=== PATIENT | female | born 1980 | race Caucasian/White ===

== ENCOUNTER 2016-11-20 08:51 | Emergency (ER) | payer OTHER ==
[2016-11-20 09:04] VITALS: BP 110/75; PULSE 72; RESP 16; TEMP 98.1; O2SAT 96
--- NOTE | 2016-11-20 09:22 | UCPHY ---
H & P Patient Type: Established Chief Complaint Nursing Narrative: left ankle swollen, fell while dancing 2 days ago. Time Seen by Provider: 11/20/16 09:10 HPI/ROS: Chief complaint: Left ankle pain HPI: 36-year-old woman presenting with worsening left ankle pain for the last couple days. Patient has been doing a lot of dancing preparing for show patient 's nose worsening left ankle pain in the middle portion of her ankle for the last several days. She is able to ambulate. Does not recall any specific injuries or falls. Does not have a history of injuries in the past. No rash. No numbness or tingling. ROS: 10 point Review of Systems is negative except as noted in the HPI. Past medical history: Depression and ADD Medications: SSRI and Adderall Allergies: No known drug allergies Social history: Nonsmoker, occasional alcohol, no recreational drug use Physical exam: General: Awake, alert, no acute distress Left leg: She has full range of motion hip without pain. Full range of motion of her knee without pain. She has no knee tenderness. No calf tenderness. She has tenderness just inferior to the medial malleolus along the Tenisha tibial ligaments. She has minimal distal malleolar tenderness. She has no midfoot tenderness. No lateral ankle tenderness. No calcaneal tenderness. She has full range of motion with some mild discomfort. She has 2+ DP and PT pulses. Cap refills less than 2 seconds. - Medical/Surgical History Hx Asthma: No Hx Chronic Respiratory Disease: No Hx Diabetes: No Hx Cardiac Disease: No Hx Renal Disease: No Hx Cirrhosis: No Hx Alcoholism: No Hx HIV/AIDS: No Hx Splenectomy or Spleen Trauma: No Other PMH: depression. denies surgery - Family History Significant Family History: No pertinent family hx - Social History Smoking Status: Never smoked Constitutional: Initial Vital Signs Temperature (C) 36.7 C 11/20/16 08:59 Heart Rate 72 11/20/16 08:59 Respiratory Rate 16 11/20/16 08:59 Blood Pressure 110/75 11/20/16 08:59 O2 Sat (%) 96 11/20/16 08:59 O2 Delivery Mode Room Air Allergies/Adverse Reactions: No Known Allergies Allergy (Unverified 03/05/14 11:15) Home Medications: Medication Instructions Recorded FLUoxetine [Prozac 20 MG (*)] 03/05/14 Adderall 10 mg Tablet 11/20/16 Bcp 11/20/16 Departure - Departure Disposition: Home, Routine, Self-Care Clinical Impression: Ankle sprain Condition: Good Instructions: Ankle Sprain (ED) Additional Instructions: Follow up with primary care physician in 4-5 days if symptoms are not improving. You may take ibuprofen alternating with acetaminophen for pain. Rest, ice, and elevate the extremity while your having pain. Referrals: AGUSTIN BUSTILLOS [Other] - As per Instructions - PQRS PQRS Measurement: NA
== END 2016-11-20 09:56 | disposition home or self-care (01) ==
LOC: CED 08:51
DX: S93.402A Sprain of unspecified ligament of left ankle, initial encounter (principal); Y93.41 Activity, dancing
CPT/HCPCS: 73610-PO; 99213-PO; G0463-PO